=== PATIENT | female | born 1990 | race Caucasian/White ===

== ENCOUNTER 2020-05-24 10:32 | Emergency (ER) | payer OTHER, MEDICAID, SELFPAY ==
[2020-05-24 10:35] VITALS: BP 143/76; PULSE 88; RESP 14; TEMP 36.7; O2SAT 98; BMI 32.8
--- NOTE | 2020-05-24 11:26 | ED_ITS ---
HPI - URI/Sore Throat <LAYLA Cruz - Last Filed: 05/24/20 15:38> General Chief Complaint: Upper Respiratory Symptoms Stated Complaint: Throat hurts, can barely swallow, L side ear pain Time Seen by Provider: 05/24/20 11:00 Source: patient Mode of arrival: Ambulatory Limitations: no limitations History of Present Illness HPI Narrative: 29yo female presents to the emergency department complaining of a left-sided throat pain and ear pain that started 2 days ago. Patient states is difficult to swallow food due to increased pain, she states the lymph nodes on her left side of her neck are swollen. She denies any fevers, cough, shortness of breath, dizziness, sick contacts, nausea, vomiting, diarrhea, or rhinorrhea. Patient states she has a history of asthma, denies worsening asthma symptoms, does not take anything for her asthma. She denies any change in voice. Patient reports she took ibuprofen this morning which helped decrease the pain. Related Data Previous Rx's Medication Instructions Recorded ibuprofen 800 mg PO TID PRN #30 tab 05/30/20 oxycodone 5 mg PO Q6H PRN #20 cap 05/30/20 Allergies Allergy/AdvReac Type Severity Reaction Status Date / Time amoxicillin [AMOXICILLIN] Allergy Severe Throat Verified 05/27/20 23:17 closes off Penicillins [PENICILLINS] Allergy Unknown Verified 05/24/20 10:39 Review of Systems <LAYLA Cruz - Last Filed: 05/24/20 15:38> Review of Systems Narrative: REVIEW OF SYSTEMS: GENERAL: Denies fevers. HENT: No head trauma or hearing loss. Reports sore throat, see HPI. EYES: No loss of vision. CARDIOVASCULAR: No chest pain or syncope. RESPIRATORY: No shortness of breath. GASTROINTESTINAL: No nausea, vomiting, diarrhea, or constipation. MUSCULOSKELETAL: No weakness or injury. INTEGUMENTARY: No rash, lesions, or pruritus. NEURO: No memory loss, or confusion. Patient History <LAYLA Cruz - Last Filed: 05/24/20 15:38> Medical History Asthma (Acute) Social History household members: family Smoking Status: Current every day smoker alcohol intake: current Smoking Status: Unknown if ever smoked alcohol intake frequency: holidays/special occasions only Substance Use Type: does not use Exam <LAYLA Cruz - Last Filed: 05/24/20 15:38> Initial Vital Signs Initial Vital Signs: Vital Signs Temperature 98.1 F 05/24/20 10:35 Pulse Rate 88 05/24/20 10:35 Respiratory Rate 14 05/24/20 10:35 Blood Pressure 143/76 H 05/24/20 10:35 Pulse Oximetry 98 05/24/20 10:35 PHYSICAL EXAMINATION: GENERAL: Well groomed, alert, and cooperative. Answers questions promptly and appropriately. Vital signs noted. HENT: Normocephalic, atraumatic. Ear canals patent. TMs intact without mucus or erythema. Oropharynx with erythema, tonsils 2+ and equal bilaterally, slight increased redness to left side, uvula midline, pronates. Soft palate and hard palate without swelling. EYES: Conjunctiva pink, sclera white, no periorbital swelling. No discharge. CHEST: Normal to inspection and without deformities. CARDIOVASCULAR: S1 and S2 sounds normal. Regular rate and rhythm, no murmurs, clicks, or bruits. RESPIRATORY: Normal respiratory rate, trachea midline, airway patent. No st ridor, nasal flaring or accessory muscle use. Able to speak in full sentences. Lungs are clear in all booth without wheeze, rhonchi, or crackles. No cough observed. MUSCULOSKELETAL: Normal gait and coordination. Equal tone and mass bilaterally. EXTREMITIES: Moves all extremities. SKIN: Warm, dry, soft, appropriate color for ethnicity. No lesions, rashes, or wounds to visualized areas. NEURO: Alert and Oriented X 3. Good coordination. No ataxia or cognitive issues. PSYCH: Appropriate affect and mood. <Selin Spear DO - Last Filed: 06/01/20 07:22> Initial Vital Signs Initial Vital Signs: Vital Signs Temperature 98.1 F 05/24/20 10:35 Pulse Rate 88 05/24/20 10:35 Respiratory Rate 14 05/24/20 10:35 Blood Pressure 143/76 H 05/24/20 10:35 Pulse Oximetry 98 05/24/20 10:35 Course <LAYLA Cruz - Last Filed: 05/24/20 15:38> Course Course Narrative: Patient was given a dose of dexamethasone, throat culture was sent to lab. Orders Ordered: Discontinued Medications Dexamethasone (Decadron) 10 mg PO NOW ONE Stop: 05/24/20 11:24 Last Admin: 05/24/20 12:08 Dose: 10 mg Documented by: SUKH Vital Signs Vital signs: Vital Signs - 8 hr 05/24/20 10:35 Temperature 98.1 F Pulse Rate 88 Respiratory Rate 14 Blood Pressure 143/76 H Pulse Oximetry 98 <Selin Spear DO - Last Filed: 06/01/20 07:22> Orders Ordered: Discontinued Medications Dexamethasone (Decadron) 10 mg PO NOW ONE Stop: 05/24/20 11:24 Last Admin: 05/24/20 12:08 Dose: 10 mg Documented by: SUKH Vital Signs Vital signs: Vital Signs - 8 hr 05/24/20 10:35 Temperature 98.1 F Pulse Rate 88 Respiratory Rate 14 Blood Pressure 143/76 H Pulse Oximetry 98 MDM - URI/Sore Throat <LAYLA Cruz - Last Filed: 05/24/20 15:38> Medical Records Attestation: I reviewed the patient's medical records. Lab Data Attestation: I reviewed the patient's lab results. Labs: Point of Care Testing Rapid Strep A Negative MDM Narrative Medical decision making narrative: 29-year-old female presents emergency department for a sore throat. Patient's POC strep a test was negative, culture was sent to lab given isolated throat irritation and soreness. Concern for tonsillar abscess as hard and soft palate were without swelling, uvula was midline, tonsils are equal bilaterally. Additionally, patient may have viral pharyngitis. Less concern for other etiology due to lack of cough or shortness of breath or fevers. Patient was given a dose of dexamethasone, was told she will be see a results in 2 days for culture is positive for any other strains of strep. Return precautions given for new or worsening symptoms. Patient agreed to plan of care verbalized understanding. <Selin Spear DO - Last Filed: 06/01/20 07:22> Lab Data Labs: Point of Care Testing Rapid Strep A Negative Discharge Plan Departure Patient Disposition: Home Clinical Impression: Pharyngitis Qualifiers: Pharyngitis/tonsillitis etiology: unspecified etiology Qualified Code(s): J02.9 - Acute pharyngitis, unspecified Discharge Date/Time: 05/24/20 12:18 Instructions: DI for Viral Pharyngitis Activity Restrictions/Additional Instructions: Thank you for entrusting me with your care today. As discussed, your strep a test was negative today. However, we have sent a throat culture to look for other sources of bacteria. We have given you a dose of dexamethasone which is a steroid that continues to work for the next 3 days to decrease swelling, pain, and irritation. Is very important you drink lots of fluids to help with the throat pain and swelling. Take ibuprofen as needed. Follow up with your primary care provider in 3-4 days for further evaluation if symptoms continue. We will call you with results in 1-2 days if they are positive. Return emergency department for any new or worsening symptoms such as severe pain, drooling, vision changes, chest pain, shortness of breath, or any other concerns. Prescriptions: No Action oxycodone 5 mg capsule 5 mg PO Q6H PRN (Reason: pain) Qty: 20 RF: 0 ibuprofen 800 mg tablet 800 mg PO TID PRN (Reason: pain) Qty: 30 RF: 0 <Selin Spear DO - Last Filed: 06/01/20 07:22> Cosign ED Attending Cosloyature Attestation: I was immediately available in the depar tment for consultation. Documentation has been reviewed. I agree with assessment and plan.
[2020-05-24] MEDS: DEXAMETHASONE 10 MG/ML VIAL PO (12:08)
== END 2020-05-24 12:18 | disposition home or self-care (01) ==
PROVIDERS: Emergency Provider Nurse Practitioner
DX: J02.9 Acute pharyngitis, unspecified (principal)
CPT/HCPCS: 87070; 87077; 87186; 87880; 99283; J1100

== ENCOUNTER 2020-05-27 20:31 | Observation (INO) | payer OTHER, MEDICAID, SELFPAY ==
[2020-05-27] VITALS (18 sets, daily range): BP systolic 127–164; BP diastolic 83–102; PULSE 67–117; RESP 7–33; TEMP 37; O2SAT 98–100; BMI 29.9
--- NOTE | 2020-05-27 20:34 | DI.RAD.S_ITS ---
PROCEDURE: XR SHOULDER LT MIN 2V INDICATIONS: trauma TECHNIQUE: 2 views of the shoulder were acquired. COMPARISON: None. FINDINGS: Bones: No fractures or dislocations. No suspicious bony lesions. Visualized ribs appear intact. Soft tissues: No suspicious soft tissue calcifications. IMPRESSION: No fracture Dictated by: Ki Tucker M.D. on 05/27/2020 at 21:56 Approved by: Ki Tucker M.D. on 05/27/2020 at 21:56
--- NOTE | 2020-05-27 20:34 | DI.RAD.S_ITS ---
PROCEDURE: XR FOREARM RT 2V INDICATIONS: trauma with pain TECHNIQUE: 2 views of the forearm were acquired. COMPARISON: None. FINDINGS: Bones: Severely displaced mid diaphyseal radial and ulnar fractures are seen with overriding appearance. There is radial displacement of the distal fracture fragments measuring approximately 1 shaft. There is also volar displacement of the distal fragments. Associated soft tissue swelling. IMPRESSION: Displaced, overriding mid-diaphyseal fractures of the radius and ulna. Dictated by: Ki Tucker M.D. on 05/27/2020 at 21:55 Approved by: Ki Tucker M.D. on 05/27/2020 at 21:56
--- NOTE | 2020-05-27 20:35 | DI.RAD.S_ITS ---
PROCEDURE: XR PELVIS 1-2V INDICATIONS: trauma TECHNIQUE: 2 view(s) of the pelvis acquired. COMPARISON: None. FINDINGS: Bones: No fractures or dislocations. There is slight malalignment at the pubis symphysis No suspicious bony lesions. Sacroiliac alignment appears grossly intact. Soft tissues: Visualized bowel gas pattern is normal. Incidental IUD noted. No suspicious soft tissue calcifications. IMPRESSION: Slight malalignment /subluxed appearance at the pubis symphysis . Recommend clinical correlation to point tenderness. Dictated by: Ki Tucker M.D. on 05/27/2020 at 21:06 Approved by: Ki Tucker M.D. on 05/27/2020 at 21:08
--- NOTE | 2020-05-27 20:35 | DI.CT.S_ITS ---
PROCEDURE: CT CERVICAL SPINE WO CON INDICATIONS: Trauma TECHNIQUE: Noncontrast 3 mm thick sections acquired from the skull base to the T4 level. Sagittal and coronal reformats were then constructed. For radiation dose reduction, the following was used: automated exposure control, adjustment of mA and/or kV according to patient size. COMPARISON: [facility], CT, CT CHEST ABD PEL W CON, 05/27/2020, 20:39. FINDINGS: Image quality: Excellent. Bones: Partially visualized sternal fracture. Visualized superior ribs are intact. Straightening of the normal lordotic curvature. Soft tissues: Prevertebral soft tissues are normal in thickness. No paravertebral hematomas. No apical pneumothoraces. There is right maxillary sinus disease, mild. Presumed debris seen within both external auditory canals. IMPRESSION: Partially visualized sternal fracture No cervical spine fracture identified Straightening of the normal lordotic curvature. Dictated by: Ki Tucker M.D. on 05/27/2020 at 21:19 Approved by: Ki Tucker M.D. on 05/27/2020 at 21:22
--- NOTE | 2020-05-27 20:35 | DI.CT.S_ITS ---
PROCEDURE: CT HEAD/BRAIN WO CON INDICATIONS: Trauma TECHNIQUE: Noncontrast 4.5 mm thick angled axial sections acquired from the foramen magnum to the vertex, with coronal and sagittal reformats. For radiation dose reduction, the following was used: automated exposure control, adjustment of mA and/or kV according to patient size. COMPARISON: None. FINDINGS: Image quality: Excellent. CSF spaces: Basal cisterns are patent. No extra-axial fluid collections. Ventricles are normal in size and shape. Brain: No midline shift. No intracranial masses or hemorrhage. Starr-white matter interface is normal. Skull and face: Calvarium and visualized facial bones are intact, without suspicious lesions. Mild right maxillary sinus disease. Debris within both external auditory canals. IMPRESSION: No acute intracranial process. Dictated by: Ki Tucker M.D. on 05/27/2020 at 21:35 Approved by: Ki Tucker M.D. on 05/27/2020 at 21:37
--- NOTE | 2020-05-27 20:35 | DI.CT.S_ITS ---
PROCEDURE: CT CHEST ABD PEL W CON INDICATIONS: Trauma TECHNIQUE: After the administration of intravenous contrast, 5 mm thick sections acquired from the lung apices to the symphysis. 2.5 mm thick coronal and sagittal reformats were acquired. Additional 7 mm thick coronal maximum intensity projection (MIP) reformats acquired through the lungs. Optional 10-minute delayed imaging may be performed from the kidneys to the bladder. For radiation dose reduction, the following was used: automated exposure control, adjustment of mA and/or kV according to patient size. COMPARISON: None. FINDINGS: Image quality: Excellent. CHEST: Lungs: No pulmonary contusions or lacerations. No acute airspace opacities. No pneumothorax or hemothorax. Central and peripheral airways appear patent and normal in caliber. Mediastinum: No mediastinal hematomas. Heart size is normal. No pericardial effusion. Thoracic aorta and pulmonary arteries demonstrate normal size and enhancement. No mediastinal or hilar adenopathy. Esophagus is normal in caliber. No hiatal hernia. Mildly displaced fracture of the manubrium. There is adjacent hematoma and soft tissue gas. Minimally displaced fracture of the anterior right 4th rib, and 5th rib. ABDOMEN: Solid organs: Liver is normal in size and enhancement, without lacerations. Gallbladder negative . Biliary system is non-dilated. Pancreas enhances normally, without transection. Spleen is normal in size and enhancement, without lacerations. No adrenal hematomas. Both kidneys enhance normally, without hydronephrosis or lacerations. Peritoneum and bowel: No free fluid or air. Unenhanced bowel loops demonstrate normal wall thickness and caliber. Nodes and vessels: No retroperitoneal or mesenteric adenopathy. Aorta and inferior vena cava are normal in size and enhancement. Miscellaneous: No ventral hernias. PELVIS: Genitourinary: Bladder wall thickness is normal. Incidental IUD. Miscellaneous: No inguinal hernias or adenopathy. Bones: Pelvic ring and hip joints appear intact. No vertebral compression fractures. IMPRESSION: Mildly displaced fracture of the manubrium. Minimally displaced anterior right 4th and 5th rib fractures No acute abnormality seen in the abdomen/pelvis. Dictated by: Ki Tucker M.D. on 05/27/2020 at 21:22 Approved by: Ki Tucker M.D. on 05/27/2020 at 21:28
--- NOTE | 2020-05-27 20:35 | DI.RAD.S_ITS ---
PROCEDURE: XR CHEST 1V INDICATIONS: trauma TECHNIQUE: One view of the chest was acquired. COMPARISON: None. FINDINGS: Surgical changes and devices: None. Lungs and pleura: Lungs are clear. Lung apices excluded from the examination. No pleural effusions or pneumothorax. Mediastinum: Mediastinal contours appear normal. Heart size is normal. Bones and chest wall: No suspicious bony lesions. Overlying soft tissues appear unremarkable. IMPRESSION: No acute disease. Lung apices are excluded from the examination. Dictated by: Ki Tucker M.D. on 05/27/2020 at 21:08 Approved by: Ki Tucker M.D. on 05/27/2020 at 21:08
[2020-05-27] MEDS: fentaNYL 100 MCG/2 ML INJ (20:40)
[2020-05-27 20:48] LABS: Add Manual Diff / Slide Review NO; Basophils Absolute Auto 200 /uL (0-100); Basophils Percent Auto 1.1 % (0-2); Eosinophils Absolute Auto 100 /uL (0-450); Eosinophils Percent Auto 0.5 % (2-4); Hematocrit 46.7 % (36-46); Hemoglobin 16.1 g/dL (12.0-16.0); Lymphocytes Absolute Auto 8000 /uL (1100-4500); Mean Corpuscular HGB Conc 34.4 % (30-36); Mean Corpuscular Hemoglobin 32.9 PG (26-34); Mean Corpuscular Volume 95.8 fL (80-100); Monocytes Absolute Auto 900 /uL (0-900); Monocytes Percent Auto 6.2 % (3-14); Neutrophils Absolute Auto 5900 /uL (1500-7000); Neutrophils Percent Auto 39.2 % (50-75); Platelet Count 434 X10^3/uL (150-400); Red Blood Cell Count 4.87 X10^6/uL (4.0-5.2); White Blood Cell Count 15.1 X10^3/uL (4.5-11.0)
[2020-05-27 20:55] LABS: Alanine Aminotransferase 75 IU/L (<35); Albumin 4.2 g/dL (3.5-5.0); Albumin Globulin Ratio 1.2 (1.0-2.8); Alkaline Phosphatase 94 U/L (38-126); Aspartate Aminotransferase 73 IU/L (14-36); BUN Creatinine Ratio 8.6 (6-22); Bilirubin Total 0.4 mg/dL (0.2-1.3); Blood Urea Nitrogen 5 mg/dL (7-17); Calcium 9.1 mg/dL (8.4-10.2); Carbon Dioxide 27 mmol/L (22-32); Chloride 105 mmol/L (98-107); Creatine Kinase 87 U/L (30-135); Estimated Glomerular Filt Rate > 60.0 mL/min (>60); Ethanol (ETOH) 292 mg/dL; Globulin 3.5 g/dL (1.7-4.1); Glucose 152 mg/dL (70-100); HEMOLYSIS < 15 (0-50); Lipase 120 U/L (23-300); Potassium 2.9 mmol/L (3.4-5.1); Sodium 143 mmol/L (137-145); Total Protein 7.7 g/dL (6.3-8.2)
[2020-05-27 21:07] LABS: Troponin I < 0.012 ng/mL (0.01-0.034)
[2020-05-27] MEDS: SODIUM CHLORIDE 0.9% 1,000 ML 150 ML IV (21:15)
[2020-05-27] MEDS: HYDROMORPHONE 1 MG INJ IV (21:43)
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
--- NOTE | 2020-05-27 21:57 | DI.RAD.S_ITS ---
PROCEDURE: XR ANKLE RT MIN 3V INDICATIONS: right ankle pain TECHNIQUE: 3 views of the ankle were acquired. COMPARISON: None. FINDINGS: Bones: No fractures or dislocations. Ankle mortise is normally aligned. No suspicious bony lesions. Soft tissues: No tibiotalar joint effusion. Achilles tendon appears normal. Lateral soft tissue swelling is noted and ligamentous injury cannot be excluded. IMPRESSION: No fracture. No osseous lesion. If symptoms and/or clinical suspicion for pathology persists, further assessment with repeat radiographs (7-10 days) or advanced imaging (e.g. CT, MRI or bone scan) may be helpful. Dictated by: Sherrell Salinas MD, PhD on 05/28/2020 at 8:49 Approved by: Sherrell Salinas MD, PhD on 05/28/2020 at 8:49
[2020-05-27] MEDS: PROPARACAINE 0.5% OPHTH SOL 1 DROPS EYE-BOTH (22:12)
[2020-05-27] MEDS: FLUORESCEIN 1 MG STRIP EYE-BOTH (22:12)
[2020-05-27 22:33] LABS: Appearance Urine UA CLEAR; Bacteria Urine None Seen; Bilirubin Urine UA NEGATIVE (NEGATIVE); Glucose Urine UA NEGATIVE (Negative); Ketones Urine UA NEGATIVE (NEGATIVE); Leukocyte Esterase Urine UA NEGATIVE (NEGATIVE); Nitrite Urine UA NEGATIVE (Negative); Occult Blood Urine UA 1+ (Negative); Protein Urine UA NEGATIVE (Negative); Specific Gravity Urine UA <=1.005 (1.000-1.035); Urobilinogen Urine UA 0.2 E.U./dL (0.2); WBC Urine None Seen (0-5/HPF)
[2020-05-27 22:35] LABS: Ur Creatinine Normal (Normal); Ur Specific Gravity Normal (Normal); Urine pH Normal (Normal)
[2020-05-27 22:36] LABS: UR Morphine/Opiate cutoff 300 Negative (Negative); Urine Amphetamines Negative (Negative); Urine Barbiturates Negative (Negative); Urine Benzodiazepines Negative (Negative); Urine Cocaine Negative (Negative); Urine MDMA Negative (Negative); Urine Methadone Negative (Negative); Urine Methamphetamines Negative (Negative); Urine Oxycodone Negative (Negative); Urine Phencyclidine Negative (Negative); Urine Tetrahydrocannabinol Negative (Negative); Urine Tricyclic Antidepressant Negative (Negative)
[2020-05-27 22:38] LABS: Color Urine UA Straw
[2020-05-27 22:39] LABS: Culture Indicated Urine Cult Not Indicated; RBC Urine 0-1/HPF (0-5/HPF); Squamous Epithelial Cell Urine 0-1 /HPF (0-5/HPF)
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
--- NOTE | 2020-05-27 23:27 | PC.NURSE ---
Pt's step mother has her 2 children in her custody. Report given to MICHAEL Rivera.
[2020-05-28] VITALS (18 sets, daily range): BP systolic 110–145; BP diastolic 59–90; PULSE 60–97; RESP 13–20; TEMP 36.2–37.2; O2SAT 14–98; BMI 29.9
--- NOTE | 2020-05-28 | DI.RAD.S_ITS ---
PROCEDURE: XR FOREARM RT 2V INDICATIONS: ORIF LEFT FOREARM TECHNIQUE: Fluoroscopic images were obtained during an operative procedure and submitted for interpretation following the completion of the procedure. COMPARISON: [facility], CR, XR FOREARM LT 2V, 05/27/2020, 21:18. FINDINGS: These fluoroscopic images were performed for intraoperative localization. On these images, plate and screw fixation can be seen involving the radial shaft and the ulnar shaft. There is improved anatomic alignment. Please correlate with intraoperative findings. IMPRESSION: Normal intraoperative examination. Dictated by: Jeanmarie Redmond M.D. on 05/28/2020 at 17:07 Approved by: Jeanmarie Redmond M.D. on 05/28/2020 at 17:08
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
[2020-05-28 00:19] LABS: COVID19 -Nasal RAPID Negative (Negative)
[2020-05-28] MEDS: LACTATED RINGERS 1,000 ML 125 ML IV ×2 (00:49→19:44)
[2020-05-28] MEDS: MAGNESIUM SULFATE 2 GM, FOLIC ACID 1 MG, THIAMINE 100 MG, MULTIVITAMIN 10 ML in SODIUM ... IV (01:01)
--- NOTE | 2020-05-28 01:08 | PC.ADMIT ---
[address] [place] [address] Dr Duong 105 Admission Note: The patient,Shoshana Maxwell,29 y/o, was given written information regarding hospital policies, unit procedures and contact persons. Patient's smoking status: Current every day smoker. Vital Signs - 8 hr 05/27/20 20:45 05/27/20 21:16 05/27/20 21:18 Temperature 98.6 F Pulse Rate 67 86 Respiratory Rate 7 L 13 Blood Pressure 142/96 H Pulse Oximetry 100 99 05/27/20 21:20 05/27/20 21:30 05/27/20 21:41 Temperature Pulse Rate 86 77 90 Respiratory Rate 23 31 H 21 Blood Pressure 146/102 H 148/91 H 127/98 H Pulse Oximetry 99 100 100 05/27/20 21:45 05/27/20 21:50 05/27/20 22:00 Temperature Pulse Rate 100 H 117 H 83 Respiratory Rate 23 29 H 13 Blood Pressure 164/88 H 137/83 Pulse Oximetry 98 99 100 05/27/20 22:10 05/27/20 22:20 05/27/20 22:30 Temperature Pulse Rate 99 H 83 96 H Respiratory Rate Blood Pressure 138/83 148/90 H 138/86 Pulse Oximetry 98 99 100 05/27/20 22:40 05/27/20 22:50 05/27/20 23:00 Temperature Pulse Rate 93 H 87 94 H Respiratory Rate 30 H 25 H 21 Blood Pressure 147/93 H 145/92 H Pulse Oximetry 99 05/27/20 23:01 05/27/20 23:10 05/27/20 23:20 Temperature Pulse Rate 93 H 93 H 92 H Respiratory Rate 25 H 33 H 13 Blood Pressure 148/98 H 138/98 H 138/100 H Pulse Oximetry 05/28/20 00:22 Temperature 98.0 F Pulse Rate 84 Respiratory Rate 16 Blood Pressure 126/75 Pulse Oximetry Patient up from ED via stretcher, pt was able to slide from stretcher to AC bed. increased pain with movement but states its tolerable if she is at rest.
[2020-05-28 06:48] LABS: Add Manual Diff / Slide Review NO; Basophils Absolute Auto 100 /uL (0-100); Basophils Percent Auto 0.6 % (0-2); Eosinophils Absolute Auto 0 /uL (0-450); Eosinophils Percent Auto 0.1 % (2-4); Hemoglobin 14.2 g/dL (12.0-16.0); Lymphocytes Absolute Auto 1500 /uL (1100-4500); Lymphocytes Percent Auto 14.8 % (25-40); Mean Corpuscular HGB Conc 34.7 % (30-36); Monocytes Absolute Auto 800 /uL (0-900); Monocytes Percent Auto 8.2 % (3-14); Neutrophils Absolute Auto 7600 /uL (1500-7000); Neutrophils Percent Auto 76.3 % (50-75); Platelet Count 298 X10^3/uL (150-400); Red Blood Cell Count 4.32 X10^6/uL (4.0-5.2); Red Cell Distribution Width 13.1 % (11.6-14.8)
[2020-05-28 06:58] LABS: Alanine Aminotransferase 63 IU/L (<35); Albumin 3.8 g/dL (3.5-5.0); Albumin Globulin Ratio 1.2 (1.0-2.8); Alkaline Phosphatase 87 U/L (38-126); Aspartate Aminotransferase 63 IU/L (14-36); BUN Creatinine Ratio 10.9 (6-22); Bilirubin Total 0.4 mg/dL (0.2-1.3); Blood Urea Nitrogen 5 mg/dL (7-17); Calcium 8.4 mg/dL (8.4-10.2); Carbon Dioxide 27 mmol/L (22-32); Chloride 107 mmol/L (98-107); Creatine Kinase 205 U/L (30-135); Estimated Glomerular Filt Rate > 60.0 mL/min (>60); Globulin 3.1 g/dL (1.7-4.1); Glucose 117 mg/dL (70-100); HEMOLYSIS < 15 (0-50); Potassium 3.7 mmol/L (3.4-5.1); Sodium 140 mmol/L (137-145); Total Protein 6.9 g/dL (6.3-8.2)
[2020-05-28 07:10] LABS: Troponin I < 0.012 ng/mL (0.01-0.034)
[2020-05-28 07:13] LABS: CKMB % Relative Index 0.6 % (1.5-5.0); Creatine Kinase MB 1.13 ng/mL (<2.37)
[2020-05-28] MEDS: MORPHINE 4 MG/ML INJ IV ×3 (07:13→14:55)
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
--- NOTE | 2020-05-28 15:27 | PM.PREOP ---
Pre-operative Note COVID-19 COVID-19 status: Negative Result date/Date tested (Pos, Neg/Pending): 05/27/20 Interval Note History & Physical reviewed/Exam performed by Physician: Yes Changes to H&P: No
[2020-05-28] MEDS: LACTATED RINGERS 1,000 ML 42 ML IV ×2 (15:30→17:24)
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
[2020-05-28] MEDS: CLINDAMYCIN 900 MG/50 ML PIGGYBACK 50 MG IV ×2 (16:15→23:07)
--- NOTE | 2020-05-28 16:37 | SUR.OPER ---
Supine on padded OR bed, head on pillow, right arm secured on padded arm boards at <90 degrees abduction, left arm draped free on black arm table, legs uncrossed, safety belt at thigh, tape over blanket over lower legs.
[2020-05-28] MEDS: BUPIVACAINE 0.5% W/ EPI (PF) 30 ML VIAL INJ (16:47)
[2020-05-28] MEDS: METOCLOPRAMIDE 10 MG/2 ML INJ IV (18:24)
[2020-05-28] MEDS: ONDANSETRON 4 MG/2 ML INJ IV (18:24)
[2020-05-28] MEDS: HYDROMORPHONE 2 MG INJ IV ×2 (18:24→18:31)
[2020-05-28] MEDS: OXYCODONE/ACETAMINOPHEN 5/325 TABLET 1 TAB PO (18:35)
--- NOTE | 2020-05-28 18:44 | SUR.PHASEI ---
Medicated for c\o pain and nausea. Left hand: cap refill < 2 seconds, normal sensation, swollen.
[2020-05-28] MEDS: OXYCODONE IR 10 MG TABLET PO ×2 (19:44→23:07)
[2020-05-28] MEDS: DOCUSATE 100 MG CAPSULE PO (22:14)
[2020-05-29] MEDS: OXYCODONE IR 10 MG TABLET PO ×7 (02:51→21:27)
[2020-05-29 04:00] VITALS: BP 112/68; PULSE 65; RESP 18; TEMP 36.1; O2SAT 97
[2020-05-29] MEDS: LACTATED RINGERS 1,000 ML 125 ML IV (04:11)
[2020-05-29 06:12] LABS: Hematocrit 39.2 % (36-46); Hemoglobin 13.3 g/dL (12.0-16.0); Mean Corpuscular HGB Conc 33.9 % (30-36); Mean Corpuscular Hemoglobin 32.7 PG (26-34); Mean Corpuscular Volume 96.3 fL (80-100); Platelet Count 269 X10^3/uL (150-400); Red Blood Cell Count 4.08 X10^6/uL (4.0-5.2); Red Cell Distribution Width 12.7 % (11.6-14.8); White Blood Cell Count 11.3 X10^3/uL (4.5-11.0)
--- NOTE | 2020-05-29 07:55 | PM.PNPO.1 ---
Subjective Subjective Date Patient Seen: 05/29/20 Time Patient Seen: 07:56 Interval history: She is feeling much better today. The ankle is still sore. The hand is feeling better. No more numbness and tingling. She has not been up and moving yet Exam Vital Signs (past 8 hours): - 05/29/20 04:00 Temperature 97.0 F L Pulse Rate 65 Respiratory Rate 18 Blood Pressure 112/68 Pulse Oximetry 97 Oxygen Delivery Method Room Air Oxygen Flow Rate 0 Const Orientation: alert and oriented x3 Extrem Other: Right ankle-tender and swollen over the lateral malleolus. Full range of motion. Left forearm easily wiggles fingers and makes a engine monitor. Intact sensation and good capillary refill in the hand Objective Labs Result Diagrams: 05/29/20 05:46 05/28/20 06:40 Labs: Laboratory Results - last 24 hr 05/28/20 05/29/20 06:40 05:46 WBC 11.3 H RBC 4.08 Hgb 13.3 Hct 39.2 MCV 96.3 MCH 32.7 MCHC 33.9 RDW 12.7 Plt Count 269 CK-MB (CK-2) 1.13 CK-MB (CK-2) Rel Index 0.6 L Troponin I < 0.012 Assessment & Plan Post-op Postoperative Procedures: Procedures Operation Date: 05/28/20 15:45 Actual Procedures Side Surgeon p ORIF Forearm Fracture Left Geo Dobbs MD She is doing better today. Mobilize today with physical therapy. We can try either a stirrup splint or a boot for the right ankle. This is not broken but most likely sprained and she will be more comfortable with some immobilization. Okay to discharge from an orthopedic standpoint. She can follow up with me in 2 weeks on Wednesday Quality VTE Deep Vein Thrombosis/Pulmonary Embolism Present on Admission: No
[2020-05-29] MEDS: CLINDAMYCIN 900 MG/50 ML PIGGYBACK 50 MG IV ×2 (08:39→16:13)
[2020-05-29] MEDS: DOCUSATE 100 MG CAPSULE PO ×2 (08:39→21:27)
[2020-05-29 09:38] VITALS: O2SAT 98
[2020-05-29 10:00] VITALS: BP 113/72; PULSE 66; RESP 17; TEMP 36.7; O2SAT 98
[2020-05-29] MEDS: ENOXAPARIN 40 MG/0.4 ML SYRINGE SUBCUT (12:35)
[2020-05-29] MEDS: polyethylene glycoL 3350 17 GM POWD.PACK PO (12:35)
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
[2020-05-29 14:00] VITALS: BP 135/73; PULSE 68; RESP 16; TEMP 36.8; O2SAT 97
[2020-05-29 15:15] VITALS: BP 128/74; PULSE 67; RESP 16; TEMP 36.8; O2SAT 97
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
[2020-05-29] MEDS: LIDOCAINE PATCH 1 EACH ADH..PATCH TOP (17:49)
[2020-05-29 19:35] VITALS: BP 146/89; PULSE 73; RESP 16; TEMP 36.7; O2SAT 98
--- NOTE | 2020-05-29 19:59 | PC.NURSE ---
activity 1930 pt up to ambulate in hallway with this RN. Gait steady with crutch to right side. wore brace to RLE. Sling in place to LUE. edema to left hand improved and pt denies tingling to left pinky. assisted to reposition in recliner with BLEs and LUE elevated.
[2020-05-29] MEDS: MAGNESIUM HYDROXIDE 30 ML UDC PO (21:27)
[2020-05-29] MEDS: SODIUM CHLORIDE 0.9% FLUSH 10 ML IV (21:28)
[2020-05-30] MEDS: OXYCODONE IR 10 MG TABLET PO ×5 (00:51→14:46)
[2020-05-30] MEDS: CLINDAMYCIN 900 MG/50 ML PIGGYBACK 50 MG IV ×2 (00:51→07:49)
[2020-05-30 00:54] VITALS: BP 118/65; PULSE 70; RESP 18; TEMP 37; O2SAT 94
--- NOTE | 2020-05-30 07:13 | PM.PNPO.1 ---
Subjective Subjective Date Patient Seen: 05/30/20 Time Patient Seen: 07:13 Interval history: She is doing better. The ankle is much better in her brace. Mostly just hurting in the chest Exam Vital Signs (past 8 hours): - 05/30/20 00:54 Temperature 98.6 F Pulse Rate 70 Respiratory Rate 18 Blood Pressure 118/65 Pulse Oximetry 94 Oxygen Delivery Method Room Air Oxygen Flow Rate 0 Const Orientation: alert and oriented x3 Extrem Other: Right ankle-greatly decreased swelling, comfortable range of motion Left arm-dressing clean and dry easily wiggles fingers. Intact sensation. Objective Labs Result Diagrams: 05/29/20 05:46 05/28/20 06:40 Assessment & Plan Post-op Postoperative Procedures: Procedures Operation Date: 05/28/20 15:45 Actual Procedures Side Surgeon p ORIF Forearm Fracture Left Geo Dobbs MD She is doing much better. Continue mobilization with therapy. No contraindications to blood thinners from my perspective. Discharge home when independent. Follow up with me in 1-1/2 weeks on Wednesday. Quality VTE Deep Vein Thrombosis/Pulmonary Embolism Present on Admission: No
[2020-05-30 07:45] VITALS: BP 123/75; PULSE 66; RESP 18; TEMP 36.3; O2SAT 98
[2020-05-30] MEDS: ENOXAPARIN 40 MG/0.4 ML SYRINGE SUBCUT (07:48)
[2020-05-30] MEDS: polyethylene glycoL 3350 17 GM POWD.PACK PO (07:48)
[2020-05-30] MEDS: LIDOCAINE PATCH 1 EACH ADH..PATCH TOP (07:49)
[2020-05-30] MEDS: DOCUSATE 100 MG CAPSULE PO (07:49)
[2020-05-30] MEDS: SODIUM CHLORIDE 0.9% FLUSH 10 ML IV (07:52)
[2020-05-30 11:05] VITALS: BP 122/67; PULSE 69; RESP 16; TEMP 36.5; O2SAT 96
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
[2020-05-30 15:35] VITALS: BP 143/98; PULSE 77; RESP 16; TEMP 36.8; O2SAT 98
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
[2020-05-30] MEDS: OXYCODONE IR 5 MG TABLET PO (17:11)
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
--- NOTE | 2020-06-12 14:21 | CM.DPNOTE ---
Call from [facility] stating they had the referral for pt's CARLA assessment and they have not been able to get ahold of pt on her cell phone listed on pt's Facesheet and requested additional number to call or they will have to cancel pt's assessment appointment. SW provided pt's step mom Conrado's number where pt discharged too and [facility] will attempt to get ahold of pt through that number. GENA Alvarez
== END 2020-05-30 17:48 | disposition home or self-care (01) ==
LOC: ED 22:41 → AC 05-28 00:13
PROVIDERS: Orthopaedic Surgery; Admitting Provider Specialist; Emergency Provider Emergency Medicine; Referring Provider Emergency Medicine; Visit Provider Specialist
PROC: (CPT 25575; principal; 2020-05-28 15:45)
DX: S52.232A Displaced oblique fracture of shaft of left ulna, initial encounter for closed fracture (principal); S52.332A Displaced oblique fracture of shaft of left radius, initial encounter for closed fracture; S06.0X9A Concussion with loss of consciousness of unspecified duration, initial encounter; S22.21XA Fracture of manubrium, initial encounter for closed fracture; S22.41XA Multiple fractures of ribs, right side, initial encounter for closed fracture; F10.120 Alcohol abuse with intoxication, uncomplicated; E87.6 Hypokalemia; M25.571 Pain in right ankle and joints of right foot; S93.401A Sprain of unspecified ligament of right ankle, initial encounter; V47.5XXA Car driver injured in collision with fixed or stationary object in traffic accident, initial encounter; Y92.410 Unspecified street and highway as the place of occurrence of the external cause; Z11.59 Encounter for screening for other viral diseases; J45.909 Unspecified asthma, uncomplicated; E66.9 Obesity, unspecified; Y90.8 Blood alcohol level of 240 mg/100 ml or more
CPT/HCPCS: 25575; 29125; 36415; 51701; 70450; 71045; 71260; 72125; 72170; 73030; 73090; 73610; 74177; 76000; 80053; 80305; 80320; 81001; 82550; 82553; 83690; 84484; 85025; 85027; 86850; 86900; 86901; 87635; 93005; 96361; 96374; 96375; 97116; 97162; 97530; 99222; 99231; 99238; 99285; G0378; J1170; J1650; J2270; J2405; J2765; J3010; J3475; Q9967

== ENCOUNTER 2020-07-12 10:03 | Emergency (ER) | payer OTHER, MEDICAID, SELFPAY ==
[2020-05-28 00:03] VITALS: BMI 29.9
[2020-07-12 10:15] VITALS: BP 123/70; PULSE 84; RESP 12; TEMP 36.7; O2SAT 95; BMI 34.7
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
--- NOTE | 2020-07-12 10:33 | DI.RAD.S_ITS ---
PROCEDURE: XR RIBS RT MIN 3V W CXR 1V INDICATIONS: Persistent pain with history of recent manubrial and rib fractures. TECHNIQUE: Two views of the right ribs were acquired, along with a single view chest. COMPARISON: [facility], CR, XR CHEST 1V, 05/27/2020, 20:29. [facility], CT, CT CHEST ABD PEL W CON, 05/27/2020, 20:39. FINDINGS: Surgical changes and devices: None. Bones and chest wall: Minimal fractures of the right 4th and 5th ribs anterolaterally were seen to greater advantage on the prior CT. A mildly displaced oblique fracture through the manubrium is redemonstrated. No suspicious bony lesions. Overlying soft tissues appear unremarkable. Lungs and pleura: No pleural effusions or pneumothorax. Lungs appear clear. Mediastinum: Mediastinal contours appear normal. Heart size is normal. IMPRESSION: 1. Mildly displaced sternal fracture of the manubrium redemonstrated, with evaluation limited on the current study. 2. Minimally displaced right 4th and 5th rib fractures not well visualized on the current study and were seen to greater advantage on the prior CT. 3. No evidence of pneumothorax. Dictated by: Javad Hernandez M.D. on 07/12/2020 at 11:10 Approved by: Javad Hernandez M.D. on 07/12/2020 at 11:20
[2020-07-12] MEDS: KETOROLAC 60 MG/2 ML VIAL 30 MG IM (10:40)
[2020-07-12 10:54] VITALS: PULSE 79; O2SAT 100
[2020-07-12 11:00] VITALS: BP 125/71; PULSE 74; O2SAT 99
[2020-07-12 11:30] VITALS: BP 117/73; PULSE 72; O2SAT 100
== END 2020-07-12 12:01 | disposition home or self-care (01) ==
PROVIDERS: Emergency Provider Emergency Medicine
DX: S22.21XD Fracture of manubrium, subsequent encounter for fracture with routine healing (principal); S22.41XD Multiple fractures of ribs, right side, subsequent encounter for fracture with routine healing; V89.2XXD Person injured in unspecified motor-vehicle accident, traffic, subsequent encounter
CPT/HCPCS: 71101; 93005; 96372; 99284; J1885

== ENCOUNTER 2021-10-28 14:37 | Emergency (ER) | payer OTHER, MEDICAID, SELFPAY ==
[2020-05-28 00:03] VITALS: BMI 29.9
[2021-10-28 14:54] VITALS: BP 142/90; PULSE 64; RESP 18; TEMP 36.6; O2SAT 98; BMI 32.9
[2021-10-28 15:45] LABS: COVID19 -Nasal RAPID Negative (Negative)
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
== END 2021-10-28 16:50 | disposition home or self-care (01) ==
PROVIDERS: Emergency Medicine; Emergency Provider Nurse Practitioner Family
DX: J06.9 Acute upper respiratory infection, unspecified (principal); F17.200 Nicotine dependence, unspecified, uncomplicated; Z20.822 Contact with and (suspected) exposure to COVID-19
CPT/HCPCS: 87635; 99281; 99282; C9803

== ENCOUNTER 2024-08-13 12:14 | Emergency (ER) | payer OTHER, MEDICAID, SELFPAY ==
[2020-05-28 00:03] VITALS: BMI 29.9
[2024-08-13 12:17] VITALS: BP 126/79; PULSE 65; RESP 18; TEMP 36.8; O2SAT 100; BMI 32.9
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
[2024-08-13] MEDS: TET,DIPH,PERTUSS(ACELL),VAC/PF 0.5 ML SYRINGE IM (13:44)
[2024-08-13 13:59] VITALS: BP 121/79; PULSE 55; RESP 14; O2SAT 98
== END 2024-08-13 14:02 | disposition home or self-care (01) ==
PROVIDERS: Emergency Provider Physician Assistant
DX: S61.011A Laceration without foreign body of right thumb without damage to nail, initial encounter (principal); W25.XXXA Contact with sharp glass, initial encounter; Z23 Encounter for immunization
CPT/HCPCS: 12002; 90471; 99283; 90715